=== PATIENT | male | born 1980 | race Two or more races ===

== ENCOUNTER 2023-02-28 23:59 | Emergency (ER) | payer OTHER, MEDICAID ==
[~2023-02-28] VITALS: Ht 165.1 cm; Wt 57.9 kg
[2023-03-01] MEDS ORDERED: TRAM50TA2 PO (01:15)
[2023-03-01] MEDS ORDERED: AUG875T PO (01:15)
[2023-03-01] MEDS ORDERED: TETANUS-DIPTH-ACEL PERTUSSIS 0.5ML SYR Tdap IM ONE (01:15)
[2023-03-01] MEDS ORDERED: HYDROcodone-ACET 10/325MG TAB PO ONE (01:15)
[2023-03-01] MEDS ORDERED: KETOROLAC TROMETH 60MG/2ML VIAL IM ONE (01:15)
[2023-03-01] MEDS ORDERED: IBUP-1455 PO (01:15)
[2023-03-01 01:30] VITALS: BP 105/68; PULSE 93; RESP 18; TEMP 99.2; O2SAT 98
== END 2023-03-01 01:34 | disposition home or self-care (01) ==
LOC: ER 03-01 00:04 → EDBD 03-01 00:04 → ER 03-01 01:34
DX: S09.8XXA Other specified injuries of head, initial encounter (principal); W50.0XXA Accidental hit or strike by another person, initial encounter; Y93.61 Activity, american tackle football; Y92.213 High school as the place of occurrence of the external cause; Y99.8 Other external cause status
CPT/HCPCS: 90471; 90715; 96372; 99284; J1885